=== PATIENT | male | born 1965 | race Hispanic/Latino ===

== ENCOUNTER 2018-03-13 14:56 | Emergency (ER) | payer OTHER, SELFPAY ==
[2018-03-13] MEDS ORDERED: Nitroglycerin 2% Ointment 1 INCH/1 GM Packet ONE (15:05)
[2018-03-13 15:17] LABS: #Eosinphils 0.1 thou/uL (0.0-0.7); #Lymphocytes 2.7 thou/uL (1.20-3.40); #Monocytes 0.9 thou/uL (0.11-0.59); #Neutrophils 3.8 thou/uL (1.40-6.50); %Basophils 0.5 % (0.0-1.0); %Eosinophils 1.3 % (0.0-10.0); %Lymphocytes 35.3 % (21.0-51.0); %Monocytes 12.3 % (0.0-10.0); %Neutrophils 50.5 % (42.0-75.0); Mean Corpuscular HGB CONC 34.3 g/dL (32.0-36.0); Mean Corpuscular Hemoglobin 31.8 pg (27.0-31.0); Mean Corpuscular Volume 92.5 fl (80.0-94.0); Mean Platelet Volume 7.2 fL (7.4-10.4); Platelet Count 245 thou/uL (130-400); Red Blood Cell (RBC) Count 5.34 mill/uL (4.70-6.10); White Blood Cell (WBC) Count 7.5 thou/uL (4.8-10.8)
[2018-03-13 15:30] LABS: PTT 29.4 SEC (22.9-36.1); Prothrombin Time 13.3 SEC (12.0-14.7)
[2018-03-13 15:40] LABS: ALT (SGPT) 20 U/L (8-55); AST (SGOT) 21 U/L (5-34); Albumin 4.8 g/dL (3.5-5.0); Alkaline Phosphatase 70 U/L (40-150); Anion Gap 15 mmol/L (10-20); BUN (Urea Nitrogen) 8 mg/dL (8.4-25.7); Bilirubin, Total 0.9 mg/dL (0.2-1.2); CK (CPK) 184 U/L (30-200); Calc. Creatinine Clearance 0 mL/min (70-130); Calcium 10.1 mg/dL (7.8-10.44); Carbon Dioxide 25 mmol/L (22-29); Chloride 105 mmol/L (98-107); Estimated GFR-MDRD Greater than 90; Globulin 3.2 g/dL (2.4-3.5); Glucose 98 mg/dL (70-105); Potassium 4.1 mmol/L (3.5-5.1); Sodium 141 mmol/L (136-145)
[2018-03-13 15:44] LABS: CKMB 2.2 ng/mL (0-6.6); Troponin I 0.012 ng/mL (< 0.028)
[2018-03-13] MEDS ORDERED: Ketorolac Tromethamine 30 MG/ML VIAL ONE (16:02)
--- NOTE | 2018-03-13 16:13 | RAD ---
PORTABLE UPRIGHT FRONTAL CHEST RADIOGRAPH: 03/13/2018 HISTORY: Chest pain. COMPARISON: 09/14/2009 FINDINGS: There is no pneumothorax, pleural fluid, focal consolidation, or alveolar edema. Heart and mediastin al contour appear unremarkable. IMPRESSION: No acute findings. POS: [facility]
[2018-03-13] MEDS ORDERED: Morphine 4 MG/ML VIAL ONE (17:42)
[2018-03-13 17:52] LABS: Troponin I Less than 0.010 ng/mL (< 0.028)
[2018-03-13] MEDS ORDERED: Azithromycin 250 MG TAB ONE (18:14)
== END 2018-03-13 18:30 | disposition home or self-care (01) ==
LOC: ERS 14:56
DX: R09.1 Pleurisy (principal); I10 Essential (primary) hypertension
CPT/HCPCS: 36415; 71045; 80053; 82553; 84484; 85025; 85379; 85610; 85730; 93005; 94760; 96374; 96375; J0696; J1885; J2270

== ENCOUNTER 2023-03-27 19:47 | Emergency (ER) | payer OTHER, SELFPAY ==
[2023-03-27] MEDS ORDERED: Morphine 4 MG/ML VIAL ONE (22:53)
[2023-03-27] MEDS ORDERED: Ondansetron ODT 4 MG TAB ONE (22:53)
== END 2023-03-27 23:22 | disposition home or self-care (01) ==
LOC: ERS 19:47
DX: M54.50 Low back pain, unspecified (principal)
CPT/HCPCS: 96372; 99283; J2270; Q0162